=== PATIENT | female | born 1995 | race Caucasian/White ===

== ENCOUNTER 2017-10-24 14:17 | Outpatient (CLI) | payer BC ==
[~2017-10-24] VITALS: Ht 167.6 cm; Wt 99.8 kg
[2017-10-24] MEDS ORDERED: MULT-974 PO (14:36)
[2017-10-25] MEDS ORDERED: NITR-65 PO (12:22)
[2017-10-25] MEDS ORDERED: PHEN-640 PO (12:22)
[2017-10-25] MEDS ORDERED: TAMS0.4C98 PO (12:22)
[2017-10-25] MEDS ORDERED: HYDR-3870 PO (12:22)
== END 2017-10-24 14:43 ==
LOC: PREOP 14:17
PROVIDERS: ATTEND Urology
DX: Z01.818 Encounter for other preprocedural examination (principal); N20.1 Calculus of ureter

== ENCOUNTER → 2017-10-24 | Outpatient (CLI) | payer BC ==
[~2017-10-24] MED LIST: HYDR-3870 PO; MULT-974 PO; NITR-65 PO; PHEN-640 PO; TAMS0.4C98 PO
--- NOTE | 2017-10-24 12:38 | Diagnostic Imaging Report ---
INDICATION: History of right ureteral calculus. COMPARISON: None FINDINGS: 2 frontal radiographic views of the abdomen and pelvis were obtained. There is a 7 mm teardrop-shaped extraosseous calcification projecting over the right hemipelvis. No other extraosseous calcifications or radiopaque foreign bodies are seen. Small bowel loops are nondistended. There is no large collection of free intraperitoneal air. Bony structures show no gross acute abnormalities. IMPRESSION: 1. Probable distal right ureteral calculus. Pelvic phlebolith is also considered. 2. Nonobstructive small bowel gas pattern. Dictated by: Dictated on workstation # [id number]
== END ==
LOC: RAD 12:01
PROVIDERS: ATTEND Urology
DX: N20.1 Calculus of ureter (principal)
CPT/HCPCS: 74018

== ENCOUNTER 2017-10-25 07:00 | Day surgery (SDC) | payer BC ==
[~2017-10-25] VITALS: Ht 167.6 cm; Wt 99.8 kg
[~2017-10-25 07:00] MED LIST changes: -HYDR-3870 PO; -NITR-65 PO; -PHEN-640 PO; -TAMS0.4C98 PO
--- NOTE | 2017-10-25 07:08 | Progress Note-Pre Operative ---
Pre-Operative Progress Note H&P Reviewed The H&P was reviewed, patient examined and no changes noted. Date Seen by Provider: Oct 25, 2017 Time Seen by Provider: 07:08 Date H&P Reviewed: Oct 25, 2017 Time H&P Reviewed: 08:05 Pre-Operative Diagnosis: RT DISTAL URETERAL STONE GRIFFIN RASHID MD Oct 25, 2017 7:08 am
[2017-10-25 07:15] VITALS: BP 115/70
[2017-10-25] MEDS ORDERED: cefTRIAXone INJECTION 1,000 MG in NS (IVPB) 100 ML IV ONE (07:30)
[2017-10-25] MEDS ORDERED: ONDANSETRON 4 MG/2 ML (SDV) Z0FRAN IV ONE (08:00)
[2017-10-25] MEDS: LACTATED RINGERS 1,000 ML IV PRN ×2 (08:02→09:42)
--- NOTE | 2017-10-25 08:16 | Diagnostic Imaging Report ---
INDICATION: Right-sided calculus. COMPARISON: 10/24/2017 FINDINGS: 2 supine radiographic views of the abdomen were obtained and again demonstrate 7 mm calculus in the expected location of the distal right ureter. Position appears stable. No other unexpected extraosseous calcifications or radiopaque foreign bodies are seen. Small bowel loops are nondistended. There is no large collection or free intraperitoneal air. Bony structures show no gross acute abnormalities. IMPRESSION: 1. Redemonstration of probable distal right ureteral calculus, which appears stable in position. Dictated by: Dictated on workstation # [id number]
[2017-10-25] MEDS ORDERED: proPOfol 200 MG/20 ML (DIPRIVAN) VIAL IV ONE (08:58)
[2017-10-25] MEDS ORDERED: DEXAMETHASONE 10 MG/ML (DECADRON) 1 ML VIAL ONE (08:58)
[2017-10-25] MEDS ORDERED: SEVOFLURANE (ULTANE) 15 ML INHAL SOLN ONE (08:58)
[2017-10-25] MEDS ORDERED: LIDOCAINE PF 2% 5 ML (XYLOCAINE) VIAL ONE (08:58)
[2017-10-25] MEDS ORDERED: ONDANSETRON 4 MG/2 ML (SDV) Z0FRAN ONE (08:58)
[2017-10-25] MEDS ORDERED: fentaNYL INJECTION 100 MCG/2 ML AMP ONE (08:58)
[2017-10-25] MEDS ORDERED: MIDAZOLAM 2 MG/2 ML (VERSED) VIAL ONE (08:59)
[2017-10-25] MEDS ORDERED: morphine INJ 10 MG/ML 1ML (SYR OR VIAL) IVP PRN (10:30)
[2017-10-25] MEDS ORDERED: ONDANSETRON 4 MG/2 ML (SDV) Z0FRAN IVP PRN (10:30)
--- NOTE | 2017-10-25 10:37 | Progress Note-Post Operative ---
Post-Operative Progess Note Surgeon (s)/Director Of Community Center (s) Surgeon GRIFFIN RASHID MD Director Of Community Center: N/A Pre-Operative Diagnosis RT DISTAL URETERAL STONE Post-Operative Diagnosis SAME Procedure & Operative Findings Date of Procedure 10/25/17 Procedure Performed/Findings RT URETEROSCOPY WITH STONE LITHOTRIPSY Anesthesia Type GENERAL Estimated Blood Loss Estimated blood loss (mL): N/A Specimens/Packing Specimens Removed N/A Packing: N/A GRIFFIN RASHID MD Oct 25, 2017 10:37 am
--- NOTE | 2017-10-25 10:45 | Discharge Inst-Urology ---
Discharge Inst-Urology Discharge Medications New, Converted, or Re-newed RX: RX on Chart Patient Instructions/Follow Up Plan Please make appointment to been seen in office in 2 weeks. Increase oral fluids for 48 hours and then as needed. Diet and Activity as tolerated. If questions or concerns contact your physician Or seek help at emergency department. GRIFFIN RASHID MD Oct 25, 2017 10:45 am
[2017-10-25 11:15] VITALS: BP 120/75
[2017-10-25 11:45] VITALS: BP 120/74
[2017-10-25] MEDS ORDERED: PHENAZOPYRIDINE 100 MG (PYRIDIUM) TABLET PO ONE (11:45)
[2017-10-25] MEDS ORDERED: HYDROcodone/APAP 5 MG/325 MG (LORTAB) TAB PO PRN (11:45)
[2017-10-25] MEDS ORDERED: HYDR-3870 PO (12:22)
[2017-10-25] MEDS ORDERED: PHEN-640 PO (12:22)
[2017-10-25] MEDS ORDERED: TAMS0.4C98 PO (12:22)
[2017-10-25] MEDS ORDERED: NITR-65 PO (12:22)
[2017-10-25 12:30] VITALS: BP 119/72
[2017-10-25 12:55] VITALS: BP 119/72
--- NOTE | 2017-10-25 13:19 | OPERATIVE REPORT ---
DATE OF SERVICE: 10/25/2017 PREOPERATIVE DIAGNOSIS: Right distal ureteral stone. POSTOPERATIVE DIAGNOSIS: Right distal ureteral stone. OPERATION PERFORMED: Right ureteroscopy with stone lithotripsy. SURGEON: Karlos Rashid MD. ANESTHESIA: General. COMPLICATIONS: None. PROCEDURE: Under satisfactory general anesthesia, the patient in lithotomy position, genitalia were prepped and draped in the usual sterile fashion. Cystoscope was introduced in the bladder, which was normal except for a sluggish efflux on the right side. Using the foroblique lens, I dilated the right ureteral orifice intramural portion to the level of the stone guided fluoroscopically. I removed the cystoscope, inserted a 6.9-Mal[place]ian semirigid ureteroscope, visualized the stone, started breaking it up with the LithoClast. It was very hard stone and it started to disengage from the ureter and started moving proximally. I was concerned of losing it so I passed a 3-Mal[place]ian Dodson basket; however, the stone was too big for the basket, so I did not engage it and removed the Dodson basket, reinserted the lithoclast. I was able to fragment the stone completely and very small fragments, some of them flew into the bladder. I went proximal to this area and there were no further fragments. I removed the ureteroscope, reinserted the cystoscope to empty the bladder and the patient tolerated the procedure and anesthesia well and was sent to recovery room in stable condition. PLAN: I will see her back in two weeks to work her up for stone prevention and dieting. Plan was fully explained to the patient preoperatively and to the postoperatively. Job ID: [id number] DocumentID: [id number] Dictated Date: 10/25/2017 10:50:28 Brine Room Laborer Date: 10/25/2017 13:19:17 Dictated By: KARLOS RASHID MD
--- NOTE | 2017-10-25 14:51 | Anesthesia-General Post-Op ---
General Patient Condition Mental Status/LOC: Same as Preop Cardiovascular: Satisfactory Nausea/Vomiting: Absent Respiratory: Satisfactory Pain: Controlled Complications: Absent Post Op Complications Complications None Follow Up Care/Instructions Patient Instructions None needed. Anesthesia/Patient Condition Patient Condition Patient is doing well, no complaints, stable vital signs, no apparent adverse anesthesia problems. No complications reported per nursing. TERRANCE ULRICH CRNA Oct 25, 2017 14:50
== END 2017-10-25 12:55 | disposition home or self-care (01) ==
LOC: SDC 07:00
PROVIDERS: ATTEND Urology
DX: N20.1 Calculus of ureter (principal); Z11.2 Encounter for screening for other bacterial diseases
CPT/HCPCS: 74018; 84703; 87081

== ENCOUNTER 2017-11-09 12:10 | Outpatient (RCR) | payer BC ==
[~2017-11-09 12:10] MED LIST changes: +HYDR-3870 PO; +NITR-65 PO; +PHEN-640 PO; +TAMS0.4C98 PO
== END 2018-02-07 | disposition home or self-care (01) ==
LOC: RAD 12:10
PROVIDERS: ATTEND Urology
DX: N20.0 Calculus of kidney (principal)
CPT/HCPCS: 36415; 82140; 82340; 82507; 82570; 83735; 83945; 83986; 84105; 84133; 84300; 84392; 84560

== ENCOUNTER → 2018-12-11 | Outpatient (CLI) | payer BC ==
--- NOTE | 2018-12-11 14:42 | Diagnostic Imaging Report ---
INDICATION: Kidney stones, followup. TIME OF EXAM: 2:30 PM COMPARISON: Correlation is made with prior study from 10/25/2017. FINDINGS: Previously noted calculus in the region of the distal right ureter on prior study is no longer visualized. No definite radiopaque urinary tract calculi are seen on today's study. Bowel gas pattern is unremarkable. IMPRESSION: No radiopaque urinary tract calculi are detected. Dictated by: Dictated on workstation # [id number]
== END ==
LOC: RAD 14:16
PROVIDERS: ATTEND Urology
DX: N20.0 Calculus of kidney (principal)
CPT/HCPCS: 74018